=== PATIENT | male | born 1990 | race African-American/Black ===

== ENCOUNTER 2016-09-12 12:51 | Inpatient (IN) | payer OTHER ==
[2016-09-12 18:50] VITALS: BMI 26.9
--- NOTE | 2016-09-12 20:19 | HP ---
CIWA Score - CIWA Score Nausea/Vomitin Muscle Tremors: 2 Anxiety: 4-Mod. Anxious/Guarded Agitation: 3 Paroxysmal Sweats: 2 Orientation: 1-Uncertain about Date Tacttile Disturbances: 0-None Auditory Disturbances: 1-Very Mild Visual Disturbances: 1-Very Mild Sensitivity Headache: 0-None Present CIWA-Ar Total Score: 17 Admission ROS S - HPI Chief Complaint: WITHDRAWAL SYMPTOMS Allergies/Adverse Reactions: Allergies Allergy/AdvReac Type Severity Reaction Status Date / Time banana Allergy Verified 09/12/16 20:26 grape Allergy Verified 09/12/16 20:26 No Known Drug Allergies Allergy Verified 09/12/16 20:26 orange Allergy Verified 09/12/16 20:26 History of Present Illness: 26 Y.O. MAN WITH 4 YEAR HISTORY OF ALCOHOL AND BENZODIAZEPINE DEPENDENCE IS SEEKING DETOX. HE DENIES ANY SIGNIFICANT PERIOD OF SOBRIETY. HE REPORTS HE COMPLETED DETOX AT [facility] THE WEEK PRIOR AND WAS IN REHAB IN 2014. - Ebola screening Have you traveled outside of the country in the last 21 days: No Have you had contact with anyone from an Ebola affected area: No Have you been sick,other than usual withdrawal symptoms: No - Review of Systems Constitutional: Chills, Loss of Appetite, Malaise, Night Sweats, Unintentional Wgt. Loss EENT: reports: Blurred Vision Respiratory: reports: Cough, Shortness of Breath Cardiac: reports: No Symptoms Reported GI: reports: Diarrhea, Nausea, Abdominal cramping : reports: Other (HESISTANCY) Musculoskeletal: reports: Back Pain Integumentary: reports: No Symptoms Reported Neuro: reports: No Symptoms reported Endocrine: reports: No Symptoms Reported Hematology: reports: No Symptoms Reported Psychiatric: reports: Anxious Other Systems: Reviewed and Negative Patient History - Patient Medical History Hx Anemia: No Hx Asthma: No Hx Chronic Obstructive Pulmonary Disease (COPD): No Hx Cancer: No Hx Cardiac Disorders: No Hx Congestive Heart Failure: No Hx Hypertension: No Hx Hypercholesterolemia: No Hx Pacemaker: No HX Cerebrovascular Accident: No Hx Seizures: No Hx Dementia: No Hx Diabetes: No Hx Gastrointestinal Disorders: No Hx Liver Disease: No Hx Genitourinary Disorders: No Hx Sexually Transmitted Disorders: No Hx Renal Disease (ESRD): No Hx Thyroid Disease: No Hx Human Immunodeficiency Virus (HIV): No (negative) Hx Hepatitis C: Yes (TREATED ) Hx Depression: No Hx Suicide Attempt: No (denies) Hx Bipolar Disorder: No Hx Schizophrenia: No - Patient Surgical History Past Surgical History: No Hx Neurologic Surgery: No Hx Cataract Extraction: No Hx Cardiac Surgery: No Hx Lung Surgery: No Hx Breast Surgery: No Hx Breast Biopsy: No Hx Abdominal Surgery: No Hx Appendectomy: No Hx Cholecystectomy: No Hx Genitourinary Surgery: No Hx Section: No Hx Orthopedic Surgery: No Anesthesia Reaction: No - PPD History Previous Implant?: Yes Documented Results: Negative w/o proof PPD to be Administered?: Yes - Reproductive History Patient is a Female of Child Bearing Age (11 -55 yrs old): No - Smoking Cessation Smoking history: Current every day smoker Have you smoked in the past 12 months: Yes Aproximately how many cigarettes per day: 4 Cigars Per Day: 0 Hx Chewing Tobacco Use: No Initiated information on smoking cessation: Yes 'Breaking Loose' booklet given: 09/12/16 - Substance & Tx. History Hx Alcohol Use: Yes Substance Use Type: Alcohol Hx Substance Use Treatment: Yes (DETOX AND REHAB ) - Substances Abused Alcohol Route: Oral Frequency: Daily Amount used: 3-4 24OZ BEER Age of first use: 9 Date of Last Use: 09/12/16 Alprazolam (Xanax) Route: Oral Frequency: 1-2 times per week Amount used: 4MG Age of first use: 21 Family Disease History - Family Disease History Family Disease History: Diabetes: Grandparent, Heart Disease: Grandparent Admission Physical Exam BHS - Vital Signs Vital Signs: Vital Signs - 24 hr 09/12/16 18:45 Temperature 98.2 F Pulse Rate 86 Respiratory 20 Rate Blood Pressure 107/68 - Physical General Appearance: Yes: Alcohol on Breath, Intoxicated, Sweating, Anxious HEENTM: Yes: Hearing grossly Normal, Normal ENT Inspection Respiratory: Yes: Chest Non-Tender, Lungs Clear, Normal Breath Sounds, No Respiratory Distress, No Accessory Muscle Use Neck: Yes: No masses,lesions,Nodules, Trachea in good position Breast: Yes: Breast Exam Deferred Cardiology: Yes: Regular Rhythm, Regular Rate, S1, S2 Abdominal: Yes: Within Normal Limits Genitourinary: Yes: Hesitency Back: Yes: Normal Inspection Musculoskeletal: Yes: full range of Motion, Muscle Pain Extremities: Yes: Normal Inspection, Normal Range of Motion, Non-Tender Neurological: Yes: Alert, Normal Mood/Affect, Normal Response Integumentary: Yes: Normal Color, Dry, Warm Lymphatic: Yes: Within Normal Limits - Diagnostic (1) Alcohol dependence with uncomplicated withdrawal Current Visit: Yes Status: Chronic (2) Nicotine dependence Current Visit: Yes Status: Chronic Qualifiers: Nicotine product type: cigarettes Substance use status: uncomplicated Qualified Code(s): F17.210 - Nicotine dependence, cigarettes, uncomplicated (3) Sedative, hypnotic or anxiolytic dependence with withdrawal, uncomplicated Current Visit: Yes Status: Chronic Cleared for Admission [facility] - Detox or Rehab [facility] Level of Care: Medically Managed Detox Regimen/Protocol: Valium [facility] Breath Alcohol Content Breath Alcohol Content: 0.168 Urine Drug Screen - Results Drug Screen Negative: Yes Urine Drug Screen Results: BZO-Benzodiazepines
[2016-09-12] MEDS ORDERED: NICOTINE POLACRILEX 2 MG GUM BUC PRN (20:36)
[2016-09-12] MEDS ORDERED: MAGNESIUM HYDROX 2400MG/30ML ORAL SUSPENSION 30 ML CUP PO PRN (20:36)
[2016-09-12] MEDS ORDERED: IBUPROFEN 400 MG TABLET (FP) PO PRN (20:36)
[2016-09-12] MEDS ORDERED: ACETAMINOPHEN 325 MG TABLET (FP) PO PRN (20:36)
[2016-09-12] MEDS ORDERED: P-EPHED 60MG/TRIPROLIDI 2.5MG TABLET PO PRN (20:36)
[2016-09-12] MEDS ORDERED: hydrOXYzine PAMOATE 50 MG CAPSULE (FP) PO PRN (20:36)
[2016-09-12] MEDS ORDERED: diazePAM 5 MG TABLET PO ONE (20:36)
[2016-09-12] MEDS ORDERED: MAG HYDROX/AL HYDROX/SIMETH 30 ML UNIT-DOSE CUP PO PRN (20:36)
[2016-09-12] MEDS ORDERED: MAGNESIUM CITRATE 300 ML BOTTLE PO PRN (20:36)
[2016-09-12] MEDS ORDERED: LOPERAMIDE HCL 2 MG CAPSULE PO PRN (20:36)
[2016-09-12] MEDS ORDERED: guaiFENesin/D-METHORPHAN HB 10 ML UNIT-DOSE CUPS PO PRN (20:36)
[2016-09-12] MEDS ORDERED: MENTHOL/PHENOL 1 EACH UD MM PRN (20:36)
[2016-09-12] MEDS ORDERED: diphenhydrAMINE HCL 50 MG CAPSULE PO PRN (20:36)
[2016-09-12] MEDS: THIAMINE HCL 100 MG TABLET (FP) PO SCH (21:50)
[2016-09-12] MEDS: diazePAM 5 MG TABLET PO SCH (21:51)
[2016-09-13 00:22] LABS: URINE APPEARANCE SLCLOUDY; URINE BILIRUBIN NEGATIVE (NEGATIVE); URINE BLOOD NEGATIVE (NEGATIVE); URINE COLOR YELLOW; URINE GLUCOSE (UA) NEGATIVE (NEGATIVE); URINE KETONE NEGATIVE (NEGATIVE); URINE LEUK ESTERASE NEGATIVE (NEGATIVE); URINE NITRITE NEGATIVE (NEGATIVE); URINE PROTEIN NEGATIVE (NEGATIVE); URINE UROBILINOGEN NEGATIVE E.U./dl (0.2-1.0)
[2016-09-13] MEDS: diazePAM 5 MG TABLET PO SCH ×3 (05:37→22:19)
[2016-09-13] MEDS: PRENATAL VITAMINS W/ FOLIC ACID TABLET (FP) PO SCH (10:22)
[2016-09-13 10:42] LABS: MCH 30.9 pg (25.7-33.7); MEAN CELL VOLUME 90.6 fl (80-96); MEAN PLT VOLUME 9.1 fl (7.5-11.1); PLATELET COUNT 268 K/MM3 (134-434); RDW 13.9 % (11.9-15.9); WHITE BLOOD COUNT 7.4 K/mm3 (4.0-10.0)
[2016-09-13 10:48] LABS: CALCIUM 8.8 mg/dL (8.5-10.1); GLUCOSE,RANDOM 132 mg/dL (74-106)
[2016-09-13 10:59] LABS: ALBUMIN 3.7 g/dl (3.4-5.0); ALK PHOS 92 U/L (45-117); ANION GAP 12 (8-16); BILIRUBIN,TOTAL 0.3 mg/dL (0.2-1.0); CO2 24 mmol/L (21-32); COCKROFT - GAULT 86.4; CREATININE 1.4 mg/dL (0.7-1.3); SGOT/AST 24 U/L (15-37); SGPT/ALT 27 U/L (12-78); TOT PROT 6.6 g/dl (6.4-8.2)
--- NOTE | 2016-09-13 12:09 | CONSULT ---
[facility] Psychiatric Consult - Data Date of interview: 09/13/16 Admission source: [facility] Identifying data: First admission to [facility] for this 26 y/o AA male seeking detox treatment for alcohol,cocaine,marijuana,heroin and xanax dependence (self- report but tox screen + for benzos only).Patient is single without children, homeless,unemployed and supported on Public Assistance. Substance Abuse History: - Smoking Cessation. Smoking history: Current every day smoker. Have you smoked in the past 12 months: Yes. Aproximately how many cigarettes per day: 4. Cigars Per Day: 0. Hx Chewing Tobacco Use: No. Initiated information on smoking cessation: Yes. 'Breaking Loose' booklet given : 09/12/16. - Substance & Tx. History. Hx Alcohol Use: Yes. Substance Use Type: Alcohol. Hx Substance Use Treatment: Yes (DETOX AND REHAB ). - Substances Abused. Alcohol. Route: Oral. Frequency: Daily. Amount used: 3 -4 24OZ BEER. Age of first use: 9. Date of Last Use: 09/12/16. Alprazolam (Xanax). Route: Oral. Frequency: 1-2 times per week. Amount used: 4MG. Age of first use: 21. Confirmed by patient. Medical History: Hepatitis C and low back pain. Psychiatric History: Patient denies. Physical/Sexual Abuse/Trauma History: Patient denies. Additional Comment: Urine Drug Screen Results: BZO-Benzodiazepines.Noted. Mental Status Exam - Mental Status Exam Alert and Oriented to: Time, Place, Person Cognitive Function: Good Patient Appearance: Well Groomed Mood: Hopeful, Euthymic Affect: Appropriate, Normal Range Patient Behavior: Fatigued, Appropriate, Cooperative Speech Pattern: Clear, Appropriate Voice Loudness: Normal Thought Process: Goal Oriented Thought Disorder: Not Present Hallucinations: Denies Suicidal Ideation: Denies Homicidal Ideation: Denies Insight/Judgement: Poor Sleep: Poorly, Difficulty falling asleep Appetite: Good Muscle strength/Tone: Normal Gait/Station: Normal Psychiatric Findings - Problem List ([place] 1, 2,3) (1) Alcohol dependence with uncomplicated withdrawal Current Visit: Yes Status: Acute (2) Nicotine dependence Current Visit: Yes Status: Acute Qualifiers: Nicotine product type: cigarettes Substance use status: uncomplicated Qualified Code(s): F17.210 - Nicotine dependence, cigarettes, uncomplicated (3) Sedative, hypnotic or anxiolytic dependence with withdrawal, uncomplicated Current Visit: Yes Status: Acute (4) Cocaine dependence Current Visit: Yes Status: Chronic Qualifiers: Substance use status: uncomplicated Qualified Code(s): F14.20 - Cocaine dependence, uncomplicated - Initial Treatment Plan Initial Treatment Plan: Psychoeducation.Detoxification.Ambien 10 mg po hs prn.Patient made aware of the risk for parasomnias.He agrees with this careplan.Observation.
[2016-09-13] MEDS ORDERED: ZOLPIDEM TARTRATE 5 MG TABLET PO PRN (12:19)
--- NOTE | 2016-09-13 15:08 | PN ---
[facility] CIWA - CIWA Score Nausea/Vomitin-No Nausea/No Vomiting Muscle Tremors: 4-Moderate,w/Arms Extend Anxiety: 2 Agitation: 3 Paroxysmal Sweats: 2 Orientation: 0-Oriented Tacttile Disturbances: 3-Moderate Itch/Numb/Burn Auditory Disturbances: 2-Mild Harshness/Frighten Visual Disturbances: 0-None Headache: 0-None Present CIWA-Ar Total Score: 16 S Progress Note (SOAP) Subjective: Back Ache, Interrupted sleep, Body aches, Tremors. Objective: PT. A & O X 3. 09/13/16 15:07 Vital Signs Temperature 96 F L 09/13/16 13:24 Pulse Rate 56 L 09/13/16 13:24 Respiratory Rate 20 09/13/16 13:24 Blood Pressure 114/78 09/13/16 13:24 O2 Sat by Pulse Oximetry (%) Laboratory Last Values WBC 7.4 K/mm3 (4.0-10.0) 09/13/16 06:30 RBC 4.52 M/mm3 (4.00-5.60) 09/13/16 06:30 Hgb 14.0 GM/dL (11.7-16.9) 09/13/16 06:30 Hct 41.0 % (35.4-49) 09/13/16 06:30 MCV 90.6 fl (80-96) 09/13/16 06:30 MCHC 34.0 g/dl (32.0-35.9) 09/13/16 06:30 RDW 13.9 % (11.9-15.9) 09/13/16 06:30 Plt Count 268 K/MM3 (134-434) 09/13/16 06:30 MPV 9.1 fl (7.5-11.1) 09/13/16 06:30 Sodium 137 mmol/L (136-145) 09/13/16 06:30 Potassium 3.6 mmol/L (3.5-5.1) 09/13/16 06:30 Chloride 101 mmol/L (98-107) 09/13/16 06:30 Carbon Dioxide 24 mmol/L (21-32) 09/13/16 06:30 Anion Gap 12 (8-16) 09/13/16 06:30 BUN 10 mg/dL (7-18) 09/13/16 06:30 Creatinine 1.4 mg/dL (0.7-1.3) H 09/13/16 06:30 Creat Clearance w eGFR > 60 (>60) 09/13/16 06:30 Random Glucose 132 mg/dL (74-106) H 09/13/16 06:30 Calcium 8.8 mg/dL (8.5-10.1) 09/13/16 06:30 Total Bilirubin 0.3 mg/dL (0.2-1.0) 09/13/16 06:30 AST 24 U/L (15-37) 09/13/16 06:30 ALT 27 U/L (12-78) 09/13/16 06:30 Alkaline Phosphatase 92 U/L (45-117) 09/13/16 06:30 Total Protein 6.6 g/dl (6.4-8.2) 09/13/16 06:30 Albumin 3.7 g/dl (3.4-5.0) 09/13/16 06:30 Urine Color Yellow 09/12/16 21:16 Urine Appearance Slcloudy 09/12/16 21:16 Urine pH 5.0 (5.0-8.0) 09/12/16 21:16 Ur Specific [place] 1.023 (1.001-1.035) 09/12/16 21:16 Urine Protein Negative (NEGATIVE) 09/12/16 21:16 Urine Glucose (UA) Negative (NEGATIVE) 09/12/16 21:16 Urine Ketones Negative (NEGATIVE) 09/12/16 21:16 Urine Blood Negative (NEGATIVE) 09/12/16 21:16 Urine Nitrite Negative (NEGATIVE) 09/12/16 21:16 Urine Bilirubin Negative (NEGATIVE) 09/12/16 21:16 Urine Urobilinogen Negative E.U./dl (0.2-1.0) 09/12/16 21:16 Ur Leukocyte Esterase Negative (NEGATIVE) 09/12/16 21:16 RPR Titer Nonreactive (NONREACTIVE) 09/13/16 06:30 LABS NOTED. Assessment: 09/13/16 15:07 WITHDRAWAL SYMPTOMS. Plan: CONTINUE DETOX. [facility] TOMORROW FOR ELEVATED ADMISSION RANDOM GLUCOSE LEVEL. ADVISED PATIENT TO FOLLOW-UP WITH [facility] / REHAB MEDICAL PROVIDER AFTER DISCHARGE FROM DETOX FOR GENERAL MEDICAL ASSESSMENT AND FOR ABNORMAL ADMISSION LAB VALUES.
[2016-09-13] MEDS: diazePAM 5 MG TABLET PO PRN (17:39)
[2016-09-13] MEDS ORDERED: CYCLOBENZAPRINE HCL 10 MG TABLET (FP) PO PRN (19:53)
[2016-09-13] MEDS: THIAMINE HCL 100 MG TABLET (FP) PO SCH (22:19)
[2016-09-14] MEDS: PRENATAL VITAMINS W/ FOLIC ACID TABLET (FP) PO SCH (10:20)
[2016-09-14] MEDS: diazePAM 5 MG TABLET PO SCH ×2 (10:20→22:28)
--- NOTE | 2016-09-14 11:27 | PN ---
S CIWA - CIWA Score Nausea/Vomitin Muscle Tremors: 4-Moderate,w/Arms Extend Anxiety: 4-Mod. Anxious/Guarded Agitation: 4-Moderately Restless Paroxysmal Sweats: 3 Orientation: 0-Oriented Tacttile Disturbances: 0-None Auditory Disturbances: 0-None Visual Disturbances: 0-None Headache: 1-Very Mild CIWA-Ar Total Score: 19 BHS Progress Note (SOAP) Subjective: nausea, sweats, interrupted sleep, anxiety, tremors, steen, body aches Objective: 09/14/16 11:26 Vital Signs - 8 hr 09/14/16 09/14/16 09/14/16 03:30 06:09 10:21 Temperature 96 F L 95.9 F L Pulse Rate 53 L 61 Respiratory 18 18 18 Rate Blood Pressure 126/82 117/73 Laboratory Tests 09/12/16 09/13/16 09/13/16 21:16 06:30 06:30 WBC 7.4 RBC 4.52 Hgb 14.0 Hct 41.0 MCV 90.6 MCHC 34.0 RDW 13.9 Plt Count 268 MPV 9.1 Sodium 137 Potassium 3.6 Chloride 101 Carbon Dioxide 24 Anion Gap 12 BUN 10 Creatinine 1.4 H Creat Clearance w eGFR > 60 POC Glucometer Random Glucose 132 H Calcium 8.8 Total Bilirubin 0.3 AST 24 ALT 27 Alkaline Phosphatase 92 Total Protein 6.6 Albumin 3.7 Urine Color Yellow Urine Appearance Slcloudy Urine pH 5.0 Ur Specific [place] 1.023 Urine Protein Negative Urine Glucose (UA) Negative Urine Ketones Negative Urine Blood Negative Urine Nitrite Negative Urine Bilirubin Negative Urine Urobilinogen Negative Ur Leukocyte Esterase Negative RPR Titer 09/13/16 09/14/16 06:30 05:23 WBC RBC Hgb Hct MCV MCHC RDW Plt Count MPV Sodium Potassium Chloride Carbon Dioxide Anion Gap BUN Creatinine Creat Clearance w eGFR POC Glucometer 107 Random Glucose Calcium Total Bilirubin AST ALT Alkaline Phosphatase Total Protein Albumin Urine Color Urine Appearance Urine pH Ur Specific [place] Urine Protein Urine Glucose (UA) Urine Ketones Urine Blood Urine Nitrite Urine Bilirubin Urine Urobilinogen Ur Leukocyte Esterase RPR Titer Nonreactive Assessment: 09/14/16 11:26 withdrawal sx, hyperglycemia Plan: con detox, add neurontin, scheduled flexeril and naprosyn for withdrawal sx, encourage fluids
[2016-09-14] MEDS: GABAPENTIN 100 MG CAPSULE (FP) PO SCH ×2 (13:11→22:28)
[2016-09-14] MEDS: CYCLOBENZAPRINE HCL 10 MG TABLET (FP) PO SCH ×2 (13:11→22:28)
--- NOTE | 2016-09-14 14:31 | EKG ---
Test Reason : Blood Pressure : / mmHG Vent. Rate : 057 BPM Atrial Rate : 057 BPM P-R Int : 134 ms QRS Dur : 100 ms QT Int : 426 ms P-R-T Axes : 045 016 035 degrees QTc Int : 414 ms SINUS BRADYCARDIA OTHERWISE NORMAL ECG NO PREVIOUS ECGS AVAILABLE BASELINE ARTIFACT Confirmed by ANTHONY MAYO, RITU ([id number]) on 09/14/2016 2:30:35 PM Referred By: Dean Shine Confirmed By:RITU CRUZ MD
[2016-09-14] MEDS: THIAMINE HCL 100 MG TABLET (FP) PO SCH (22:28)
[2016-09-14] MEDS: NAPROXEN 500 MG TABLET (FP) PO SCH (22:28)
[2016-09-15] MEDS: diazePAM 5 MG TABLET PO PRN ×3 (05:22→20:32)
[2016-09-15] MEDS: CYCLOBENZAPRINE HCL 10 MG TABLET (FP) PO SCH ×3 (05:23→22:16)
[2016-09-15] MEDS: GABAPENTIN 100 MG CAPSULE (FP) PO SCH ×3 (05:23→22:15)
[2016-09-15] MEDS: NAPROXEN 500 MG TABLET (FP) PO SCH ×2 (10:11→22:16)
[2016-09-15] MEDS: diazePAM 5 MG TABLET PO SCH ×2 (10:11→22:15)
[2016-09-15] MEDS: PRENATAL VITAMINS W/ FOLIC ACID TABLET (FP) PO SCH (10:11)
--- NOTE | 2016-09-15 13:58 | PN ---
[facility] Progress Note (SOAP) Subjective: Sweating,interrupted sleep,restless Objective: 09/15/16 13:57 Vital Signs - 8 hr 09/15/16 09/15/16 09/15/16 06:23 09:22 13:09 Temperature 96.1 F L 95.5 F L 97.4 F L Pulse Rate 60 67 70 Respiratory 16 18 18 Rate Blood Pressure 113/70 111/68 123/65 Laboratory Last Values WBC 7.4 K/mm3 (4.0-10.0) 09/13/16 06:30 RBC 4.52 M/mm3 (4.00-5.60) 09/13/16 06:30 Hgb 14.0 GM/dL (11.7-16.9) 09/13/16 06:30 Hct 41.0 % (35.4-49) 09/13/16 06:30 MCV 90.6 fl (80-96) 09/13/16 06:30 MCHC 34.0 g/dl (32.0-35.9) 09/13/16 06:30 RDW 13.9 % (11.9-15.9) 09/13/16 06:30 Plt Count 268 K/MM3 (134-434) 09/13/16 06:30 MPV 9.1 fl (7.5-11.1) 09/13/16 06:30 Sodium 137 mmol/L (136-145) 09/13/16 06:30 Potassium 3.6 mmol/L (3.5-5.1) 09/13/16 06:30 Chloride 101 mmol/L (98-107) 09/13/16 06:30 Carbon Dioxide 24 mmol/L (21-32) 09/13/16 06:30 Anion Gap 12 (8-16) 09/13/16 06:30 BUN 10 mg/dL (7-18) 09/13/16 06:30 Creatinine 1.4 mg/dL (0.7-1.3) H 09/13/16 06:30 Creat Clearance w eGFR > 60 (>60) 09/13/16 06:30 POC Glucometer 89 UNITS (()) 09/15/16 05:21 Random Glucose 132 mg/dL (74-106) H 09/13/16 06:30 Calcium 8.8 mg/dL (8.5-10.1) 09/13/16 06:30 Total Bilirubin 0.3 mg/dL (0.2-1.0) 09/13/16 06:30 AST 24 U/L (15-37) 09/13/16 06:30 ALT 27 U/L (12-78) 09/13/16 06:30 Alkaline Phosphatase 92 U/L (45-117) 09/13/16 06:30 Total Protein 6.6 g/dl (6.4-8.2) 09/13/16 06:30 Albumin 3.7 g/dl (3.4-5.0) 09/13/16 06:30 Urine Color Yellow 09/12/16 21:16 Urine Appearance Slcloudy 09/12/16 21:16 Urine pH 5.0 (5.0-8.0) 09/12/16 21:16 Ur Specific [place] 1.023 (1.001-1.035) 09/12/16 21:16 Urine Protein Negative (NEGATIVE) 09/12/16 21:16 Urine Glucose (UA) Negative (NEGATIVE) 09/12/16 21:16 Urine Ketones Negative (NEGATIVE) 09/12/16 21:16 Urine Blood Negative (NEGATIVE) 09/12/16 21:16 Urine Nitrite Negative (NEGATIVE) 09/12/16 21:16 Urine Bilirubin Negative (NEGATIVE) 09/12/16 21:16 Urine Urobilinogen Negative E.U./dl (0.2-1.0) 09/12/16 21:16 Ur Leukocyte Esterase Negative (NEGATIVE) 09/12/16 21:16 RPR Titer Nonreactive (NONREACTIVE) 09/13/16 06:30 labs noted Assessment: 09/15/16 13:58 Withdrawal sx. Plan: Continue detox
[2016-09-15] MEDS: THIAMINE HCL 100 MG TABLET (FP) PO SCH (22:15)
[2016-09-16] MEDS: CYCLOBENZAPRINE HCL 10 MG TABLET (FP) PO SCH (05:14)
[2016-09-16] MEDS: GABAPENTIN 100 MG CAPSULE (FP) PO SCH (05:14)
[2016-09-16 09:11] VITALS: BP 112/73; PULSE 97; TEMP 95.7
[2016-09-16] MEDS ORDERED: diazePAM 5 MG TABLET PO SCH (10:00)
[2016-09-16] MEDS: PRENATAL VITAMINS W/ FOLIC ACID TABLET (FP) PO SCH (10:02)
[2016-09-16] MEDS: NAPROXEN 500 MG TABLET (FP) PO SCH (10:02)
--- NOTE | 2016-09-16 10:50 | DS ---
[facility] Detox Discharge Summary Admission Date: 09/12/16 Discharge Date: 09/16/16 - History Present History: Alcohol Dependence, Cocaine Dependence, Sedative Dependence Pertinent Past History: Denies - Physical Exam Results Vital Signs: Vital Signs Temperature 95.7 F L 09/16/16 09:10 Pulse Rate 97 H 09/16/16 09:10 Respiratory Rate 20 09/16/16 09:10 Blood Pressure 112/73 09/16/16 09:10 O2 Sat by Pulse Oximetry (%) Pertinent Admission Physical Exam Findings: Withdrawal sx. Laboratory Last Values WBC 7.4 K/mm3 (4.0-10.0) 09/13/16 06:30 RBC 4.52 M/mm3 (4.00-5.60) 09/13/16 06:30 Hgb 14.0 GM/dL (11.7-16.9) 09/13/16 06:30 Hct 41.0 % (35.4-49) 09/13/16 06:30 MCV 90.6 fl (80-96) 09/13/16 06:30 MCHC 34.0 g/dl (32.0-35.9) 09/13/16 06:30 RDW 13.9 % (11.9-15.9) 09/13/16 06:30 Plt Count 268 K/MM3 (134-434) 09/13/16 06:30 MPV 9.1 fl (7.5-11.1) 09/13/16 06:30 Sodium 137 mmol/L (136-145) 09/13/16 06:30 Potassium 3.6 mmol/L (3.5-5.1) 09/13/16 06:30 Chloride 101 mmol/L (98-107) 09/13/16 06:30 Carbon Dioxide 24 mmol/L (21-32) 09/13/16 06:30 Anion Gap 12 (8-16) 09/13/16 06:30 BUN 10 mg/dL (7-18) 09/13/16 06:30 Creatinine 1.4 mg/dL (0.7-1.3) H 09/13/16 06:30 Creat Clearance w eGFR > 60 (>60) 09/13/16 06:30 POC Glucometer 82 UNITS (()) 09/16/16 05:15 Random Glucose 132 mg/dL (74-106) H 09/13/16 06:30 Calcium 8.8 mg/dL (8.5-10.1) 09/13/16 06:30 Total Bilirubin 0.3 mg/dL (0.2-1.0) 09/13/16 06:30 AST 24 U/L (15-37) 09/13/16 06:30 ALT 27 U/L (12-78) 09/13/16 06:30 Alkaline Phosphatase 92 U/L (45-117) 09/13/16 06:30 Total Protein 6.6 g/dl (6.4-8.2) 09/13/16 06:30 Albumin 3.7 g/dl (3.4-5.0) 09/13/16 06:30 Urine Color Yellow 09/12/16 21:16 Urine Appearance Slcloudy 09/12/16 21:16 Urine pH 5.0 (5.0-8.0) 09/12/16 21:16 Ur Specific [place] 1.023 (1.001-1.035) 09/12/16 21:16 Urine Protein Negative (NEGATIVE) 09/12/16 21:16 Urine Glucose (UA) Negative (NEGATIVE) 09/12/16 21:16 Urine Ketones Negative (NEGATIVE) 09/12/16 21:16 Urine Blood Negative (NEGATIVE) 09/12/16 21:16 Urine Nitrite Negative (NEGATIVE) 09/12/16 21:16 Urine Bilirubin Negative (NEGATIVE) 09/12/16 21:16 Urine Urobilinogen Negative E.U./dl (0.2-1.0) 09/12/16 21:16 Ur Leukocyte Esterase Negative (NEGATIVE) 09/12/16 21:16 RPR Titer Nonreactive (NONREACTIVE) 09/13/16 06:30 labs noted - Treatment Hospital Course: Detox Protocol Followed, Detoxed Safely, Responded well, Discharged Condition Good, Rehab Referral Accepted Patient has Accepted a Rehab Referral to: [facility] - Medication Discharge Medications: Ambulatory Orders NK [No Known Home Medication] 07/29/16 - Diagnosis (1) Alcohol dependence with uncomplicated withdrawal Current Visit: Yes Status: Acute (2) Nicotine dependence Current Visit: Yes Status: Acute Qualifiers: Nicotine product type: cigarettes Substance use status: uncomplicated Qualified Code(s): F17.210 - Nicotine dependence, cigarettes, uncomplicated (3) Sedative, hypnotic or anxiolytic dependence with withdrawal, uncomplicated Current Visit: Yes Status: Acute (4) Cocaine dependence Current Visit: Yes Status: Chronic Qualifiers: Substance use status: uncomplicated Qualified Code(s): F14.20 - Cocaine dependence, uncomplicated - AMA Did Patient Leave Against Medical Advice: No
== END 2016-09-16 10:06 | disposition home or self-care (01) | DRG 774 ==
LOC: YASAS 12:51 → Y3N 18:57
PROVIDERS: ADMIT Internal Medicine; ATTEND Internal Medicine
PROC: HZ2ZZZZ Detoxification Services for Substance Abuse Treatment (ICD-10-PCS; principal; 2016-09-12)
DX: F13.230 Sedative, hypnotic or anxiolytic dependence with withdrawal, uncomplicated (principal); F10.230 Alcohol dependence with withdrawal, uncomplicated; F14.20 Cocaine dependence, uncomplicated; F17.210 Nicotine dependence, cigarettes, uncomplicated; R73.9 Hyperglycemia, unspecified; B18.2 Chronic viral hepatitis C; M54.5 Low back pain
CPT/HCPCS: 36415; 80053; 81003; 85027; 86593; 93005; 93010